=== PATIENT | female | born 1945 | race Hispanic/Latino ===

== ENCOUNTER 2018-03-20 11:12 | Inpatient (IN) | payer MEDICARE ==
[~2018-03-20] VITALS: Ht 157.5 cm; Wt 78.6 kg
[2018-03-20] VITALS (7 sets, daily range): BP systolic 139–172; BP diastolic 53–79
[2018-03-20] MEDS ORDERED: INSU100V12 SQ (14:19)
[2018-03-20] MEDS ORDERED: LISI40TA4 PO (14:19)
[2018-03-20] MEDS ORDERED: IOHEXOL 350 MG/ML 100ML INFUS..BTL IV ONE (15:08)
[2018-03-20] MEDS ORDERED: NITROGLYCERIN 5 MG/ML 10 ML VIAL IV ONE (15:08)
[2018-03-20] MEDS ORDERED: HEPARIN SODIUM 1000UNIT/ML 10ML VIAL ONE (15:08)
[2018-03-20] MEDS ORDERED: IOHEXOL-350 50ML VIAL IV ONE (15:08)
[2018-03-20] MEDS ORDERED: MEPERIDINE-PF 25 MG/ML SYG ONE (15:09)
[2018-03-20] MEDS ORDERED: MIDAZOLAM HCL 1 MG/ML 2ML VIAL ONE (15:09)
[2018-03-20] MEDS ORDERED: LIDOCAINE HCL 2% 20ML ONE (15:09)
[2018-03-20] MEDS ORDERED: SODIUM BICARB 50MEQ 50ML VIAL ONE (15:11)
[2018-03-20] MEDS ORDERED: ATOR20TA65 PO (15:13)
[2018-03-20] MEDS ORDERED: METO25TA6 PO (15:13)
[2018-03-20] MEDS ORDERED: CALC668T PO (15:13)
[2018-03-20 15:29] LABS: INR 1.08 (0.85-1.15); PROTHROMBIN TIME 11.3 SEC (9.6-11.6)
[2018-03-20] MEDS ORDERED: HYDRALAZINE HCL 20 MG/ML VIAL ONE (16:44)
[2018-03-20] MEDS ORDERED: ACETAMINOPHEN-CODEINE 300/30MG TAB PO PRN (17:00)
[2018-03-20] MEDS ORDERED: ALPRAZOLAM 0.5 MG TABLET PO PRN (17:00)
[2018-03-20] MEDS: LOSARTAN 50 MG TABLET PO SCH (21:00)
[2018-03-20] MEDS: ACETAMINOPHEN-CODEINE 300/30MG TAB PO PRN (23:59)
[2018-03-21] VITALS (19 sets, daily range): BP systolic 100–192; BP diastolic 48–87
[2018-03-21 03:35] LABS: MEAN CORPUSCULAR HGB CONC 33.9 g/dL (32.0-36.0); MEAN CORPUSCULAR VOLUME 97.6 fL (79-99); NUCLEATED RED BLOOD CELLS 0.1 % (0.0-0.19); PLATELET COUNT (AUTO) 132 K/uL (130-400); RED BLOOD CELL COUNT(AUTO) 3.48 MIL/uL (4.00-5.50); RED CELL DISTRIBUTION WIDTH 15.7 % (11.0-15.5); WHITE BLOOD COUNT (AUTO) 5.1 K/uL (4.8-10.8)
[2018-03-21 03:48] LABS: ALBUMIN 3.3 g/dL (3.5-5.0); BILIRUBIN,TOTAL 0.5 mg/dL (0.2-1.0); CREATININE 5.6 mg/dL (0.5-1.5); MAGNESIUM 2.1 mg/dL (1.80-2.40); PHOSPHORUS 4.8 mg/dL (2.5-4.9); POTASSIUM 4.4 mmol/L (3.5-5.1); TOTAL PROTEIN, SERUM 6.6 g/dL (6.0-8.3); URIC ACID 4.2 mg/dL (2.6-7.2)
[2018-03-21] MEDS: PANTOPRAZOLE SODIUM 40 MG TABLET.DR PO SCH (08:43)
[2018-03-21] MEDS: LOSARTAN 50 MG TABLET PO SCH (08:43)
[2018-03-21] MEDS ORDERED: VANCOMYCIN 1GM+NS 250ML 250 ML IV PRN (09:45)
[2018-03-21] MEDS ORDERED: ACETAMINOPHEN 325 MG TAB PO PRN ×2 (11:00→16:00)
[2018-03-21] MEDS ORDERED: LOSARTAN 50 MG TABLET PO SCH (11:45)
[2018-03-21] MEDS ORDERED: BUPIVACAINE/PF 0.25% 50ML VIAL IJ ONE (12:29)
[2018-03-21] MEDS ORDERED: LIDOCAINE HCL 1% MDV 50ML VIAL ONE (12:29)
[2018-03-21] MEDS ORDERED: VANCOMYCIN 1GM+NS 250ML 250 ML IV ONE (12:29)
[2018-03-21] MEDS ORDERED: MEPERIDINE-PF 25 MG/ML SYG ONE ×2 (14:34→14:55)
[2018-03-21] MEDS ORDERED: MIDAZOLAM HCL 1 MG/ML 2ML VIAL ONE ×2 (14:34→14:55)
[2018-03-21] MEDS ORDERED: LACTULOSE 20 GM/30 ML UDCUP PO PRN (14:45)
[2018-03-21] MEDS ORDERED: ONDANSETRON HCL MDV 20ML 2 MG/ML VIAL IVP PRN (14:45)
[2018-03-21] MEDS ORDERED: HYDRALAZINE HCL 20 MG/ML VIAL IM PRN (14:45)
[2018-03-21] MEDS: INSULIN HUMULIN R 100 UNIT/ML 3ML SQ SCH ×2 (16:30→20:18)
[2018-03-21] MEDS ORDERED: SODIUM CHLORIDE 0.9% 1000ML 1,000 ML IV ONE (16:33)
[2018-03-21] MEDS ORDERED: SODIUM CHLORIDE 0.9% 1000ML 1,000 ML IV PRN (16:45)
[2018-03-21] MEDS ORDERED: ALBUMIN (HUMAN) 25% 100 ML IV PRN (16:45)
[2018-03-21] MEDS ORDERED: 0.9% SODIUM CHLORIDE 250 ML IV BAG IV PRN (16:45)
[2018-03-21] MEDS ORDERED: METOPROLOL TARTRATE 25 MG TAB PO ONE (17:20)
[2018-03-21] MEDS: METOPROLOL TARTRATE 25 MG TAB PO SCH (20:13)
[2018-03-22] VITALS: BP 143/63
[2018-03-22 03:49] LABS: HEMATOCRIT 33.9 % (36-48); MEAN CORPUSCULAR HEMOGLOBIN 32.7 pg (27.0-33.0); MEAN CORPUSCULAR HGB CONC 33.6 g/dL (32.0-36.0); MEAN CORPUSCULAR VOLUME 97.2 fL (79-99); PLATELET COUNT (AUTO) 116 K/uL (130-400); RED BLOOD CELL COUNT(AUTO) 3.49 MIL/uL (4.00-5.50); RED CELL DISTRIBUTION WIDTH 15.2 % (11.0-15.5); WHITE BLOOD COUNT (AUTO) 5.7 K/uL (4.8-10.8)
[2018-03-22 04:00] VITALS: BP 130/41
[2018-03-22 04:12] LABS: CREATININE 3.8 mg/dL (0.5-1.5); POTASSIUM 4.1 mmol/L (3.5-5.1)
[2018-03-22] MEDS: INSULIN HUMULIN R 100 UNIT/ML 3ML SQ SCH ×2 (05:25→11:30)
[2018-03-22] MEDS: ACETAMINOPHEN-CODEINE 300/30MG TAB PO PRN (06:41)
[2018-03-22 08:04] VITALS: BP 140/51
[2018-03-22] MEDS: PANTOPRAZOLE SODIUM 40 MG TABLET.DR PO SCH (08:16)
[2018-03-22] MEDS: METOPROLOL TARTRATE 25 MG TAB PO SCH (08:17)
[2018-03-22] MEDS ORDERED: LOSARTAN 100 MG TABLET PO SCH (09:00)
[2018-03-22 11:51] VITALS: BP 142/50
[2018-03-24 04:10] LABS: HEPATITIS Bs ANTIGEN SCREEN P Negative (Negative)
== END 2018-03-22 15:37 | disposition home or self-care (01) | DRG 242 ==
LOC: 2AH 12:05 → 2CH 16:39
PROVIDERS: ADMIT Hospitalist; ATTEND Hospitalist
PROC: 4A023N7 Measurement of Cardiac Sampling and Pressure, Left Heart, Percutaneous Approach (ICD-10-PCS; principal; 2018-03-20)
PROC: B2111ZZ Fluoroscopy of Multiple Coronary Arteries using Low Osmolar Contrast (ICD-10-PCS; 2018-03-20)
PROC: B2151ZZ Fluoroscopy of Left Heart using Low Osmolar Contrast (ICD-10-PCS; 2018-03-20)
PROC: 5A1223Z Performance of Cardiac Pacing, Continuous (ICD-10-PCS; 2018-03-20)
PROC: 0JH606Z Insertion of Pacemaker, Dual Chamber into Chest Subcutaneous Tissue and Fascia, Open Approach (ICD-10-PCS; 2018-03-21)
PROC: 02H63JZ Insertion of Pacemaker Lead into Right Atrium, Percutaneous Approach (ICD-10-PCS; 2018-03-21)
PROC: 02HK3JZ Insertion of Pacemaker Lead into Right Ventricle, Percutaneous Approach (ICD-10-PCS; 2018-03-21)
PROC: 5A1D70Z Performance of Urinary Filtration, Intermittent, Less than 6 Hours Per Day (ICD-10-PCS; 2018-03-21)
DX: I49.5 Sick sinus syndrome (principal); I21.4 Non-ST elevation (NSTEMI) myocardial infarction; N18.6 End stage renal disease; I50.43 Acute on chronic combined systolic (congestive) and diastolic (congestive) heart failure; I46.9 Cardiac arrest, cause unspecified; I13.2 Hypertensive heart and chronic kidney disease with heart failure and with stage 5 chronic kidney disease, or end stage renal disease; I42.0 Dilated cardiomyopathy; I25.10 Atherosclerotic heart disease of native coronary artery without angina pectoris; D64.9 Anemia, unspecified; E11.22 Type 2 diabetes mellitus with diabetic chronic kidney disease; I34.0 Nonrheumatic mitral (valve) insufficiency; I45.9 Conduction disorder, unspecified; E78.5 Hyperlipidemia, unspecified; E11.51 Type 2 diabetes mellitus with diabetic peripheral angiopathy without gangrene; I48.0 Paroxysmal atrial fibrillation; Z80.51 Family history of malignant neoplasm of kidney; Z99.2 Dependence on renal dialysis; Z83.3 Family history of diabetes mellitus; Z82.49 Family history of ischemic heart disease and other diseases of the circulatory system; I25.2 Old myocardial infarction; Z79.84 Long term (current) use of oral hypoglycemic drugs; I45.5 Other specified heart block
CPT/HCPCS: 33208; 36415; 71045; 80048; 80053; 82948; 83735; 84100; 84550; 85027; 85610; 86704; 86706; 87340; 87520; 90935; 93458; 99156; 99157; C1760; C1785; C1894; J0360; J1644; J2175; J2250; J3370; J3490; J7030; Q9967